=== PATIENT | female | born 1950 | race Caucasian/White ===

== ENCOUNTER → 2016-09-03 | Outpatient (CLI) | payer OTHER ==
[~2016-09-03] MED LIST: ALBUTEROL MININEB NEB; ALPHAGAN P5 ML OP; ALPRAZOLAM PO; ASPIRIN81 M2 PO; CELEXA PO; DARVOCET-N 1001 TAB PO; HYDROMET; LEVAQUIN PO; LORTAB 7.5-5001 TAB PO; NICOTINE TRANSD21 MG EXT; NORVASC PO; PREDNISONE PO; PRILOSEC20 MG PO; PROAIR HFA8.5 GM IH; SINGULAIR PO; SYMBICORT INH; XANAX0.5 MG PO; ZOCOR20 MG PO
--- NOTE | ~2016-09-03 | CT55 ---
[facility] A Service of [facility] RADIOLOGY TEXT RESULTS PATIENT: RADHA FERNANDEZ LOCATION: [facility] : 46 UNIT #: [id number] AGE: [address]: Diane Quan MD SEX: F ORDER DR: [id number] [facility] [address] [place], [place] [address] [id number] O MR#: [id number] Acc #: [id number] NAME: RADHA FERNANDEZ : 1950 SEX: F STUDY DATE/TIME: 09/03/2016 11:04 UNIT: [facility] ROOM: STUDY DESCRIPTION: CT Chest W Con Attending Physician: Diane Quan M.D. Ordering Physician: Diane Quan M.D. Primary Care Physician: Diane Quan M.D. MEDICAL IMAGING REPORT This report is preliminary unless electronic signature is present EXAM CT chest with contrast, 09/03/2016 HISTORY Follow-up right upper lobe lung nodule. Intermittent chest pain for the past 5-6 months. COPD. Hypertension. COMPARISON CT chest 05/19/2008. PA lateral chest 09/04/2015. CT abdomen and pelvis 09/12/2008. PROCEDURE 2.0 mm noncontrast axial images through the chest. Sagittal and coronal reformatted images were obtained. This CT exam was performed with one or more of the following radiation dose reduction techniques: automatic exposure control, adjustment of mA and/or kV according to patient size, and iterative reconstruction. FINDINGS 8.0 mm calcified granuloma is present within the right upper lobe (series 6, image 38), thought to correspond to the nodule described on the 09/04/2015 chest radiograph. It is also unchanged from a more remote CT chest from 05/19/2008. A 3.0 mm noncalcified nodule is seen within the left upper lobe (image 34). Within the posterior medial subpleural right lower lobe, a 3.0-4.0 mm noncalcified nodule is seen (series 6, image 98). Moderately advanced emphysematous changes are present which have significantly progressed since 05/19/2008. Biapical pleural parenchymal scarring. No pericardial effusion or pleural effusion. Mild coronary artery calcifications are present. Small amount of fluid is seen within the STS. [facility] A Service of [facility] RADIOLOGY TEXT RESULTS PATIENT: RADHA FERNANDEZ LOCATION: [facility] : 46 UNIT #: [id number] AGE: [address]: Diane Quan MD SEX: F ORDER DR: pericardial recesses, which appears quite similar to the 2009 exam. No definite adenopathy. Included portions of the upper abdominal organs are within normal limits. Normal caliber of the thoracic aorta. Approximately 50% to 60% luminal stenosis of the proximal left subclavian artery (series 4, image 26 denoted by arrows). Left vertebral artery is patent. Thoracic curvature toward the left. No acute or suspicious osseous lesions. IMPRESSION 1. 8.0 mm nodule within the right upper lobe is densely calcified and consistent with benign calcified granuloma. It is unchanged from CT chest from 2009. 2. A 3.0 mm nodule is demonstrated within the left upper lobe, and a 3.0-4.0 mm at noncalcified nodule is seen within the right lower lobe, as described above. These are not definitely seen on the 2009 examination. Given the patient's emphysematous changes, optional CT chest in 12 months would be recommended per Fleischner's Society criteria for pulmonary nodule management. 3. Moderately advanced emphysema, significantly progressed since the 05/19/2008 exam. 4. Approximate 50% to 60% suspected luminal stenosis in the proximal left subclavian artery. Dictated by... Ivana Han M.D. THIS IS AN ELECTRONICALLY VERIFIED REPORT Ivana Han M.D. at 09/06/2016 8:46 AM STONE/jossy TD: 09/05/2016 10:27 JOB #: [id number] MEDICAL IMAGING REPORT Page 1 of 1 COPY
[2016-09-03 10:39] LABS: CREATININE SERUM 0.6 mg/dL (0.6-1.4); GLOM FILT RATE Estimated 93.7 mL/min (>60)
== END | disposition home or self-care (01) ==
LOC: CCAT 09:45
PROVIDERS: Family Medicine
DX: J44.9 Chronic obstructive pulmonary disease, unspecified (principal); R91.1 Solitary pulmonary nodule; R63.4 Abnormal weight loss; J98.4 Other disorders of lung; R91.8 Other nonspecific abnormal finding of lung field
CPT/HCPCS: 36415; 71260; 82565; 84520; Q9967